=== PATIENT | male | born 1980 | race Caucasian/White ===

== ENCOUNTER 2019-11-22 09:02 | Emergency (ER) | payer SELFPAY ==
[~2019-11-22] VITALS: Ht 177.8 cm; Wt 106.8 kg
[2019-11-22 09:08] VITALS: Ht 177.8 cm; Wt 106.8 kg
[2019-11-22 10:03] LABS: BASOPHILS 0.5 % (0-2); EOSINOPHILS 2.2 % (0-7); HEMATOCRIT 43.7 % (42.0-54.0); HEMOGLOBIN 15.3 g/dL (13.5-17.5); IMMATURE GRANULOCYTES 0.2 % (0-5); LYMPHOCYTES 27.8 % (15-50); MCH 30.5 pg (26.0-34.0); MCV 87.1 fL (80.0-100.0); MEAN PLATELET VOLUME 8.6 fL (7.4-10.4); MONOCYTES 13.5 % (2-11); NEUTROPHILS 55.8 % (40-80); PLATELET COUNT 250 10x3/uL (130-400); RBC 5.02 10x6/uL (4.20-6.10); RDW 13.2 % (11.5-14.5); WBC 12.8 10x3/uL (4.8-10.8)
[2019-11-22 10:11] LABS: CALC OSMOLALITY 269 mosm/kg (275-300); CALCIUM 9.1 mg/dL (8.5-10.1); CHLORIDE - SERUM 99 mmol/L (98-107); CREATININE - SERUM 0.9 mg/dL (0.6-1.3); GLUCOSE 101 mg/dL (74-106); POTASSIUM - SERUM 3.9 mmol/L (3.5-5.1); SODIUM 135 mmol/L (136-145); UREA NITROGEN 13 mg/dL (7-18); eGFR NON AFRICAN AMERICAN > 90 mL/min (90-120)
[2019-11-22 10:17] LABS: ALBUMIN 3.8 g/dL (3.4-5.0); ALKALINE PHOSPHATASE 113 U/L (30-120); ALT (SGPT) 48 U/L (10-68); BILIRUBIN - TOTAL 0.46 mg/dL (0.2-1.3); PROTEIN - SERUM 8.2 g/dL (6.4-8.2)
[2019-11-22 14:35] VITALS: BP 128/86
== END 2019-11-22 14:36 | disposition short-term general hospital (02) ==
LOC: D.ER 09:02
PROVIDERS: Family Medicine
DX: L03.211 Cellulitis of face (principal); R59.0 Localized enlarged lymph nodes; K04.7 Periapical abscess without sinus; L03.213 Periorbital cellulitis